=== PATIENT | female | born 1975 ===

== ENCOUNTER 2017-07-12 20:09 | Emergency (ER) | payer SELFPAY ==
[2017-07-12 20:10] VITALS: BMI 25.9
[2017-07-12 20:16] VITALS: O2SAT 100
[2017-07-12] MEDS ORDERED: Sodium Chloride 0.9% 1,000 ML IV ONE (20:38)
[2017-07-12] MEDS ORDERED: Belladonna-Phenobarbital PO STA (21:08)
[2017-07-12 21:15] LABS: BASO % 0.1 % (0.0-2.0); EOS # 0.1 K/uL (0.0-0.7); EOS % 0.5 % (0.0-4.0); HEMOGLOBIN 14.6 g/dL (11.0-16.0); LYMPH # 0.4 K/uL (1.0-4.3); LYMPH % 2.9 % (20.0-40.0); MEAN CORPUSCULAR HEMOGLOBIN 28.7 pg (27.0-31.0); MEAN CORPUSCULAR HGB CONC 34.6 g/dL (33.0-37.0); MEAN PLATELET VOLUME 9.1 fL (7.2-11.7); MONO # 0.9 K/uL (0.0-0.8); MONO % 7.4 % (0.0-10.0); NEUT # 11.1 K/uL (1.8-7.0); NEUT % 89.1 % (50.0-75.0); NRBC % 0.1 % (0.0-2.0); PLATELET COUNT 332 K/uL (130-400); RBC 5.09 Mil/uL (3.80-5.20); RED CELL DISTRIBUTION WIDTH 12.7 % (11.5-14.5); WHITE BLOOD COUNT 12.5 K/uL (4.8-10.8)
[2017-07-12] MEDS ORDERED: Belladonna-Phenobarbital ONE (21:17)
[2017-07-12 21:30] LABS: CALCIUM 8.8 mg/dl (8.6-10.4); GFR AFRICAN-AMERICAN > 60; GFR NON-AFRICAN AMERICAN > 60; LIPASE 77 U/L (23-300)
[2017-07-12 21:31] LABS: ALB/GLOB RATIO 1.1 (1.0-2.1); ALBUMIN 4.4 g/dL (3.5-5.0); ALT/SGPT 9 U/L (9-52); AST/SGOT 38 U/L (14-36); BLOOD UREA NITROGEN 15 mg/dL (7-17)
[2017-07-12 21:44] LABS: BANDS 2 % (0-2); EOSINOPHIL 1 % (0-4); LYMPHOCYTE 3 % (20-40); MONOCYTE 8 % (0-10); NEUTROPHIL 86 % (50-75); PLATELET ESTIMATE NORMAL (NORMAL); TOTAL CELLS COUNTED 100
--- NOTE | 2017-07-12 22:46 | C.PDOC ---
Time Seen by Provider: 07/12/17 20:20 Chief Complaint (Nursing): Abdominal Pain History Per: Patient Onset/Duration Of Symptoms: Hrs (since this morning) Current Symptoms Are (Timing): Still Present Severity: Moderate Location Of Pain/Discomfort: Diffuse Quality Of Discomfort: Cramping Associated Symptoms: Nausea, Vomiting, Diarrhea Exacerbating Factors: Food Alleviating Factors: None Last Bowel Movement: Today Recent travel outside of the [place]: No Additional History Per: Prior Records Past Medical History Reviewed: Historical Data, Nursing Documentation, Vital Signs Vital Signs: Last Vital Signs Temp 99.2 F 07/12/17 20:13 Pulse 102 H 07/12/17 20:13 Resp 16 07/12/17 20:13 BP 119/80 07/12/17 20:13 Pulse Ox 100 07/12/17 20:13 - Medical History PMH: Diabetes, Hypercholesterolemia, Kidney Stones (6 mos ago) Surgical History: Cholecystectomy - [facility] Procedures DILATION OF LEFT URETER WITH INTRALUMINAL DEVICE, ENDO (05/27/15) Family History: States: Unknown Family Hx - Social History Hx Tobacco Use: No Hx Alcohol Use: No Hx Substance Use: No - Immunization History Hx Tetanus Toxoid Vaccination: No Hx Influenza Vaccination: No Hx Pneumococcal Vaccination: No Review Of Systems Except As Marked, All Systems Reviewed And Found Negative. Constitutional: Positive for: Fever (subjective) Cardiovascular: Negative for: Chest Pain Respiratory: Negative for: Shortness of Breath Gastrointestinal: Positive for: Nausea, Vomiting, Abdominal Pain, Diarrhea. Negative for: Melena, Hematochezia, Hematemesis Genitourinary: Negative for: Dysuria Musculoskeletal: Negative for: Neck Pain, Back Pain Skin: Negative for: Rash Neurological: Negative for: Weakness, Numbness Physical Exam - Physical Exam Appears: Non-toxic, No Acute Distress Skin: Normal Color, Warm, Dry, No Rash Head: Atraumatic, Normacephalic Eye(s): bilateral: Normal Inspection, PERRL, EOMI Oral Mucosa: Moist Neck: Normal ROM, Supple Cardiovascular: Rhythm Regular Respiratory: Normal Breath Sounds, No Accessory Muscle Use Gastrointestinal/Abdominal: Soft, Tenderness (nonspecific), No Distention, No Guarding, No Rebound Back: No CVA Tenderness Extremity: Normal ROM Neurological/Psych: Oriented x3, Normal Motor, Normal Sensation ED Course And Treatment - Laboratory Results Result Diagrams: 07/12/17 21:11 07/12/17 21:11 Urine POC: Negative O2 Sat by Pulse Oximetry: 100 Pulse Ox Interpretation: Normal Progress Note: Pt feels much better and wants to go home. No abdominal tenderness. Tolerating PO. Reassessment Condition: Improved Progress - Interventions Interventions:: Observation, Intravenous fluid - Medications Administered Oral: H-2 cristobal Intravenous: Antiemetic, NSAID - Data Reviewed Data Reviewed: Lab, Old records - Patient Status Patient status: Mostly improved - Continuity of Care Discussed patient case with:: Patient, ED Nurse - Patient Plan Patient Plan: Discharge, F/U with PCP, Continue present meds Disposition Counseled Patient/Family Regarding: Studies Performed, Diagnosis, Need For Followup, Rx Given - Disposition Referrals: Fan Robert MD [Non-Staff] - Disposition: HOME/ ROUTINE Disposition Time: 22:48 Condition: IMPROVED Additional Instructions: Drink plenty of fluids. Follow up with your doctor. Return to the ER if you develop abdominal pain that moves to right lower side, not tolerating fluids, worsening of symptoms or if you have any other concerns. Prescriptions: Bismuth Subsalicylate [Pepto Bismol] 2 tab PO Q1 PRN #16 ctb PRN Reason: Diarrhea Ondansetron [Zofran] 4 mg PO Q8H PRN #15 tab PRN Reason: Nausea/Vomiting Instructions: Viral Gastroenteritis, Adult (DC) Print Language: CZECH - Clinical Impression Clinical Impression: Abdominal pain, Nausea, vomiting, and diarrhea
[2017-07-12 23:03] VITALS: BP 110/74; PULSE 72; RESP 18; TEMP 98.9
[2017-07-12 23:18] LABS: SQUAMOUS EPITHIAL 4 /hpf (0-5); URINE BACTERIA RARE (<OCC); URINE BILIRUBIN NEGATIVE (NEGATIVE); URINE BLOOD 1+ (NEGATIVE); URINE CLARITY Hazy (Clear); URINE COLOR Yellow (YELLOW); URINE GLUCOSE (UA) NORMAL (Normal); URINE LEUKOCYTE ESTERASE NEG Leu/uL (Negative); URINE PROTEIN 1+ mg/dL (NEGATIVE); URINE UROBILINOGEN NORMAL mg/dL (0.2-1.0)
== END 2017-07-12 23:03 | disposition home or self-care (01) ==
LOC: C.ER 20:09
DX: R10.9 Unspecified abdominal pain (principal); R11.2 Nausea with vomiting, unspecified; R19.7 Diarrhea, unspecified
CPT/HCPCS: 80053; 81001; 83690; 85025; 96361; 96374; 96375; 99283; J1885; J2405; J7030

== ENCOUNTER 2017-09-20 10:26 | Emergency (ER) | payer OTHER ==
[2017-09-20 10:26] VITALS: BMI 25.9
[2017-09-20 10:49] VITALS: BP 146/82; PULSE 78; RESP 16; TEMP 98; O2SAT 98
[2017-09-20 11:56] LABS: SQUAMOUS EPITHIAL < 1 /hpf (0-5); URINE BACTERIA RARE (<OCC); URINE BILIRUBIN NEGATIVE (NEGATIVE); URINE BLOOD 1+ (NEGATIVE); URINE CLARITY Hazy (Clear); URINE COLOR Straw (YELLOW); URINE GLUCOSE (UA) 3+ mg/dL (Normal); URINE LEUKOCYTE ESTERASE 3+ Leu/uL (Negative); URINE PROTEIN NEGATIVE (NEGATIVE); URINE UROBILINOGEN NORMAL mg/dL (0.2-1.0)
--- NOTE | 2017-09-20 13:14 | C.PDOC ---
History Of Present Illness 41 year old female patient presents to the ER with c/o dysuria, urinary frequency and back pain. Patient states it has been going on for the past x3 days. She also stated she did not take any pain medications. Patient denies fever, chills, vaginal bleeding, vaginal discharge, pelvic pain and abdominal pain. Time Seen by Provider: 09/20/17 10:46 Chief Complaint (Nursing): Back Pain History Per: Patient History/Exam Limitations: no limitations Onset/Duration Of Symptoms: Days (x3) Current Symptoms Are (Timing): Still Present Past Medical History Reviewed: Historical Data, Nursing Documentation, Vital Signs Vital Signs: Last Vital Signs Temp 98 F 09/20/17 10:43 Pulse 78 09/20/17 10:43 Resp 16 09/20/17 10:43 BP 146/82 09/20/17 10:43 Pulse Ox 98 09/20/17 13:22 - Medical History PMH: Diabetes, Hypercholesterolemia, Kidney Stones (6 mos ago), Chronic Kidney Disease Surgical History: Appendectomy, Cholecystectomy - [facility] Procedures DILATION OF LEFT URETER WITH INTRALUMINAL DEVICE, ENDO (05/27/15) Family History: States: Unknown Family Hx - Social History Hx Tobacco Use: No Hx Alcohol Use: No Hx Substance Use: No - Immunization History Hx Tetanus Toxoid Vaccination: No Hx Influenza Vaccination: No Hx Pneumococcal Vaccination: No Review Of Systems Except As Marked, All Systems Reviewed And Found Negative. Constitutional: Negative for: Fever, Chills Genitourinary: Positive for: Dysuria, Frequency. Negative for: Vaginal Discharge, Vaginal Bleeding, Pelvic Pain Physical Exam - Physical Exam Appears: Well, Non-toxic, No Acute Distress Skin: Normal Color, Warm, Dry Head: Atraumatic, Normacephalic Eye(s): bilateral: Normal Inspection Neck: Normal ROM, Supple Chest: Symmetrical, No Deformity Cardiovascular: Rhythm Regular Respiratory: Normal Breath Sounds Gastrointestinal/Abdominal: Normal Exam, Soft, No Tenderness Extremity: Normal ROM (x4) Neurological/Psych: Oriented x3, Normal Speech Gait: Steady ED Course And Treatment O2 Sat by Pulse Oximetry: 98 (RA) Pulse Ox Interpretation: Normal Medical Decision Making Medical Decision Making: Impression: dysuria, back pain, and urinary frequency Plans: -- Urine Cx -- test -- UA Reassess: Patient is resting comfortably. No bony tenderness, no numbness, no weakness, or abdominal pain. Patient is ambulatory in the emergency department with no signs of discomfort. Patient is advised to f/u with OBGYN in 1-2 days. Disposition - Disposition Referrals: Oscar Stanley, [Non-Staff] - Disposition: HOME/ ROUTINE Disposition Time: 12:00 Condition: GOOD Additional Instructions: LARRY ARSHAD, thank you for letting us take care of you today. The emergency medical care you received today was directed at your acute symptoms. If you were prescribed any medication, please fill it and take as directed. It may take several days for your symptoms to resolve. Return to the Emergency Department if your symptoms worsen, do not improve, or if you have any other problems. Please contact your doctor or call one of the physicians/clinics you have been referred to that are listed on the Patient Visit Information form that is included in your discharge packet. Bring any paperwork you were given at discharge with you along with any medications you are taking to your follow up visit. Our treatment cannot replace ongoing medical care by a primary care provider outside of the emergency department. Thank you for allowing the [facility] team to be part of your care today. Follow up with your primary care doctor in 2-3 days for re-evaluation and further management. LARRY ARSHAD, fabby por dejarnos atenderlo hoy. La atencin mdica de emergencia que recibi hoy estaba dirigida a phyllis sntomas agudos. Si le prescribieron algn medicamento, llnelo y tome segn las indicaciones. Phyllis s ntomas pueden tardar varios fitch en resolverse. Regrese al Departamento de Emergencia si phyllis sntomas empeoran, no mejoran o si tiene algn otro problema. Comunquese con vizcaino mdico o llame a igor de los mdicos / clnicas a los que subramanian sido referido que figura en el formulario de Informacin de visita del paciente que se incluye en vizcaino paquete de milad. Traiga todos los documentos que recibi al momento del milad junto con los medicamentos que est tomando en vizcaino visita de seguimiento. Nuestro tratamiento no puede reemplazar la atencin mdica en curso por un proveedor de atencin primaria fuera del departamento de emergencia. Fabby por permitir que el equipo de [facility] [employer] sea parte de vizcaino cuidado hoy. [place] un seguimiento con vizcaino mdico de atencin primaria en 2-3 fitch para sergei nueva evaluacin y administracin adicional. Prescriptions: Ibuprofen [Motrin] 600 mg PO Q6 PRN #20 tab PRN Reason: Pain, Moderate (4-7) Sulfamethoxazole/Trimethoprim [Bactrim DS 800 mg-160 mg] 1 tab PO BID #14 tab Instructions: Urinary Tract Infection, Adult (DC) Forms: Gen Discharge Inst Belizean, OKpanda (Belizean) Print Language: BENINESE - Clinical Impression Clinical Impression: UTI (urinary tract infection) - PA / LAY UP OPERATOR / Resident Statement / has reviewed & agrees with the documentation as recorded. - Scribe Statement The provider has reviewed the documentation as recorded by the Jenae Mccullough Do Provider Attestation: All medical record entries made by the Scribe were at my direction and personally dictated by me. I have reviewed the chart and agree that the record accurately reflects my personal performance of the history, physical exam, medical decision making, and the department course for this patient. I have also personally directed, reviewed, and agree with the discharge instructions and disposition.
== END 2017-09-20 12:37 | disposition home or self-care (01) ==
LOC: C.ER 10:26
DX: N39.0 Urinary tract infection, site not specified (principal); E78.00 Pure hypercholesterolemia, unspecified

== ENCOUNTER 2018-07-07 01:28 | Emergency (ER) | payer SELFPAY ==
[2018-07-07 01:29] VITALS: BMI 25.9
--- NOTE | 2018-07-07 02:27 | C.PDOC ---
History Of Present Illness Patient presents to ED with complaint of worsening headache for the last 4 days. Patient has found no relief with OTC pain medication. Patient admits to some nausea, generalized weakness, and mild photophobia. She denies fever, chills, or vomiting. Time Seen by Provider: 07/07/18 02:26 Chief Complaint (Nursing): Headache History Per: Patient History/Exam Limitations: no limitations Onset/Duration Of Symptoms: Days (4), Worse Since Current Symptoms Are (Timing): Worse Severity: Moderate Pain Scale Rating Of: 4 Quality: Aching, "Pain" Preceeding Symptoms: None Associated Symptoms: Photophobia, Nausea. denies: Blurred Vision, Vomiting Recent travel outside of the [place]: No Additional History Per: Patient Past Medical History Reviewed: Historical Data, Nursing Documentation, Vital Signs Vital Signs: Last Vital Signs Temp 98.0 F 07/07/18 02:17 Pulse 64 07/07/18 02:17 Resp 16 07/07/18 02:17 BP 138/89 07/07/18 02:17 Pulse Ox 99 07/07/18 02:17 Primary Care Provider: Tracey Pimentel - Medical History PMH: Diabetes, Hypercholesterolemia, Kidney Stones (6 mos ago), Chronic Kidney Disease Surgical History: Appendectomy, Cholecystectomy - [facility] Procedures DILATION OF LEFT URETER WITH INTRALUMINAL DEVICE, ENDO (05/27/15) Family History: States: Unknown Family Hx - Social History Hx Tobacco Use: No Hx Alcohol Use: No Hx Substance Use: No - Immunization History Hx Tetanus Toxoid Vaccination: No Hx Influenza Vaccination: No Hx Pneumococcal Vaccination: No Review Of Systems Constitutional: Positive for: Weakness (generalized). Negative for: Fever, Chills Eyes: Positive for: Other (photophobia). Negative for: Vision Change Cardiovascular: Negative for: Chest Pain Respiratory: Negative for: Cough, Shortness of Breath Gastrointestinal: Positive for: Nausea. Negative for: Vomiting Neurological: Positive for: Headache. Negative for: Numbness Physical Exam - Physical Exam Appears: Non-toxic, No Acute Distress Skin: Warm, Dry Head: Normacephalic Eye(s): bilateral: Normal Inspection, PERRL, EOMI Oral Mucosa: Moist Neck: Trachea Midline, Supple Chest: Symmetrical Cardiovascular: Rhythm Regular Respiratory: No Rales, No Rhonchi, No Wheezing Gastrointestinal/Abdominal: Bowel Sounds (normoactive), Soft, No Tenderness, No Distention Extremity: Capillary Refill <2 Sec Extremity: Bilateral: Normal Color And Temperature, Normal ROM Pulses: Left Dorsalis Pedis: Normal, Right Dorsalis Pedis: Normal Neurological/Psych: Oriented x3, Normal Speech, Normal Cognition, Normal Motor, Normal Sensation Gait: Steady ED Course And Treatment - Laboratory Results Result Diagrams: 07/07/18 02:55 07/07/18 02:55 O2 Sat by Pulse Oximetry: 99 (in RA) Pulse Ox Interpretation: Normal - CT Scan/US CT-Brain Other Rad Studies (CT/US): Read By Radiologist ([place] [facility]) CT/US Interpretation: IMPRESSION: Normal unenhanced CT scan of the brain. . Electronically signed on July 07, 2018 4:40:24 AM EDT by: Jerson Youssef M.D., Certified by ABR, MSK, Neuroradiology. Reevaluation Time: 05:22 Reassessment Condition: Improved Medical Decision Making Medical Decision Making: Upon provider reevaluation patient is feeling better, is medically stable, and requires no further treatment in the ED at this time. Patient will be discharged home with Rx forzofran, naproxen . Counseling was provided and all questions were answered regarding diagnosis and need for follow up with the referred clinic. There is agreement to discharge plan. Return if symptoms persist or worsen. Disposition Counseled Patient/Family Regarding: Studies Performed, Diagnosis, Need For Followup, Rx Given - Disposition Referrals: Tracey Pimentel MD [Medical Doctor] - Disposition: HOME/ ROUTINE Disposition Time: 02:27 Condition: FAIR Additional Instructions: Por favor regrese si los sntomas recurren. Prescriptions: Naproxen [Naprosyn] 1 tab PO BID PRN #25 tab PRN Reason: Pain Ondansetron ODT [Zofran ODT] 1 odt PO BID PRN #6 odt PRN Reason: Nausea/Vomiting Instructions: Migraine Headache (DC) Forms: [email or web address] (Bolivian) Print Language: POLISH - Clinical Impression Clinical Impression: Migraine - Scribe Statement The provider has reviewed the documentation as recorded by the Scribe (Mayra Howell) All medical record entries made by the Scribe were at my direction and personally dictated by me. I have reviewed the chart and agree that the record accurately reflects my personal performance of the history, physical exam, medical decision making, and the department course for this patient. I have also personally directed, reviewed, and agree with the discharge instructions and disposition.
[2018-07-07 03:02] LABS: BASO # 0.1 K/uL (0.0-0.2); BASO % 0.8 % (0.0-2.0); EOS # 0.3 K/uL (0.0-0.7); EOS % 4.6 % (0.0-4.0); HEMOGLOBIN 12.8 g/dL (11.0-16.0); LYMPH # 2.9 K/uL (1.0-4.3); LYMPH % 38.4 % (20.0-40.0); MEAN CELL VOLUME 87.6 fL (81.0-99.0); MEAN CORPUSCULAR HEMOGLOBIN 29.6 pg (27.0-31.0); MEAN CORPUSCULAR HGB CONC 33.7 g/dL (33.0-37.0); MEAN PLATELET VOLUME 8.6 fL (7.2-11.7); MONO # 0.7 K/uL (0.0-0.8); MONO % 9.5 % (0.0-10.0); NEUT # 3.5 K/uL (1.8-7.0); NEUT % 46.7 % (50.0-75.0); RBC 4.33 Mil/uL (3.80-5.20); RED CELL DISTRIBUTION WIDTH 13.1 % (11.5-14.5); WHITE BLOOD COUNT 7.4 K/uL (4.8-10.8)
[2018-07-07 03:13] LABS: ALB/GLOB RATIO 1.3 (1.0-2.1); ALBUMIN 3.8 g/dL (3.5-5.0); ALT/SGPT 21 U/L (9-52); AST/SGOT 15 U/L (14-36); BLOOD UREA NITROGEN 18 mg/dL (7-17); CALCIUM 9.2 mg/dl (8.6-10.4); GFR NON-AFRICAN AMERICAN > 60
[2018-07-07 03:56] LABS: URINE BILIRUBIN NEGATIVE (NEGATIVE); URINE BLOOD NEGATIVE (NEGATIVE); URINE CLARITY Clear (Clear); URINE COLOR Yellow (YELLOW); URINE GLUCOSE (UA) NORMAL (Normal); URINE LEUKOCYTE ESTERASE NEG Leu/uL (Negative); URINE PROTEIN NEGATIVE (NEGATIVE); URINE UROBILINOGEN NORMAL mg/dL (0.2-1.0)
[2018-07-07 04:01] LABS: HCG,QUALITATIVE URINE NEGATIVE (NEGATIVE)
[2018-07-07 05:51] VITALS: BP 128/76; PULSE 68; RESP 20; TEMP 98.2; O2SAT 100
--- NOTE | 2018-07-07 07:54 | CT ---
Date of service: 07/07/2018 PROCEDURE: CT HEAD WITHOUT CONTRAST. HISTORY: headache COMPARISON: 06/11/2014 TECHNIQUE: Axial computed tomography images were obtained through the head/brain without intravenous contrast. Radiation dose: Total exam DLP = 1074.92 mGy-cm. This CT exam was performed using one or more of the following dose reduction techniques: Automated exposure control, adjustment of the mA and/or kV according to patient size, and/or use of iterative reconstruction technique. FINDINGS: HEMORRHAGE: No intracranial hemorrhage. BRAIN: No mass effect or edema. No atrophy or chronic microvascular ischemic changes. Punctate hypodensity in the left basal ganglia may represent a prominent perivascular space. VENTRICLES: Unremarkable. No hydrocephalus. CALVARIUM: Unremarkable. PARANASAL SINUSES: Unremarkable as visualized. No significant inflammatory changes. MASTOID AIR CELLS: Unremarkable as visualized. No inflammatory changes. OTHER FINDINGS: None. IMPRESSION: No acute intracranial abnormality. If symptoms persists, consider correlation with MRI. A preliminary report was generated at 4:40 a.m. on 07/07/[address] Jerson Youssef from [employer].
== END 2018-07-07 05:49 | disposition home or self-care (01) ==
LOC: C.ER 01:28
DX: G43.909 Migraine, unspecified, not intractable, without status migrainosus (principal); E78.00 Pure hypercholesterolemia, unspecified; E11.22 Type 2 diabetes mellitus with diabetic chronic kidney disease; N18.9 Chronic kidney disease, unspecified
CPT/HCPCS: 70450; 80053; 81001; 83036; 84703; 85025; 96374; 96375; 99285; J1885; J2405; J2930